=== PATIENT | male | born 1980 | race Caucasian/White ===

== ENCOUNTER 2020-12-26 09:45 | Emergency (ER) | payer OTHER ==
[2020-12-26 12:47] LABS: BASOPHIL 0.7 % (0-2); EOSINOPHIL 1.9 % (0-5); HCT 45.5 % (42.0-52.0); HGB 15.3 g/dl (13.2-18.0); LYMPHOCYTE 29.1 % (15-48); MCH 33.2 pg (25.0-31.0); MCHC 33.6 g/dL (32.0-36.0); MCV 98.7 fL (78.0-100.0); MONOCYTE 8.7 % (0-12); NEUTROPHIL 59.4 % (41-80); NRBC 0; PLT 373 K/uL (150-400); RBC 4.61 M/uL (4.70-6.00); RDW 12.5 % (11.5-14.0); WBC 8.5 K/uL (4.0-10.5)
[2020-12-26 13:20] LABS: BILIRUBIN - TOTAL 0.3 mg/dL (0.2-1.0); BUN/CREAT RATIO (CALC) 15.1 RATIO; CREATININE 0.86 mg/dL (0.67-1.17); GLOBULIN (CALCULATION) 3.4 g/dL; TOTAL PROTEIN 7.4 g/dL (6.4-8.2)
[2020-12-26 14:31] LABS: BILIRUBIN NEGATIVE (NEGATIVE); BLOOD NEGATIVE Ery/uL (NEGATIVE); CLARITY CLEAR (CLEAR); COLOR YELLOW (YELLOW); GLUCOSE (U) NORMAL (NORMAL); LEUKOCYTES NEGATIVE Leu/uL (NEGATIVE); NITRITE NEGATIVE (NEGATIVE); PROTEIN NEGATIVE (NEGATIVE); UROBILINOGEN 0.2 mg/dL (0.2-1.0)
[2020-12-26] MEDS ORDERED: MIRALAX 238GM238 GM PO (14:34)
== END 2020-12-26 14:43 | disposition home or self-care (01) ==
LOC: FER 09:45
PROVIDERS: Nurse Practitioner Family
DX: K59.00 Constipation, unspecified (principal); R10.84 Generalized abdominal pain; R11.0 Nausea; I10 Essential (primary) hypertension; F17.210 Nicotine dependence, cigarettes, uncomplicated; Z88.0 Allergy status to penicillin; Z88.1 Allergy status to other antibiotic agents; Z88.2 Allergy status to sulfonamides
CPT/HCPCS: 36415; 80053; 81003; 85025; J1885; J2405; J7030

== ENCOUNTER 2021-05-14 17:10 | Emergency (ER) | payer OTHER ==
[~2021-05-14 17:10] MED LIST: MIRALAX 238GM238 GM PO
== END 2021-05-14 18:58 | disposition home or self-care (01) ==
LOC: FER 17:10
DX: S61.011A Laceration without foreign body of right thumb without damage to nail, initial encounter (principal); F17.210 Nicotine dependence, cigarettes, uncomplicated; Z88.0 Allergy status to penicillin; Z88.2 Allergy status to sulfonamides; Z23 Encounter for immunization; W45.8XXA Other foreign body or object entering through skin, initial encounter
CPT/HCPCS: 73130; 90471; 90715